=== PATIENT | female | born 1995 | race Two or more races ===

== ENCOUNTER 2023-08-11 17:10 | Observation (INO) | payer MEDICAID ==
[~2023-08-11] VITALS: Ht 168 cm; Wt 123.4 kg
[2023-08-11] MEDS ORDERED: PREN-537 PO (17:58)
== END 2023-08-11 18:45 | disposition home or self-care (01) ==
LOC: MLD 17:10
PROVIDERS: ADMIT Obstetrics & Gynecology; ATTEND Obstetrics & Gynecology
DX: O99.891 Other specified diseases and conditions complicating pregnancy (principal); M54.9 Dorsalgia, unspecified; M79.605 Pain in left leg; M79.604 Pain in right leg; Z3A.30 30 weeks gestation of pregnancy
CPT/HCPCS: 82948; G0378

== ENCOUNTER 2023-09-14 22:45 | Observation (INO) | payer MEDICAID ==
[~2023-09-14] VITALS: Ht 168 cm; Wt 108.9 kg
[~2023-09-14 22:45] MED LIST: PREN-537 PO
[2023-09-14] MEDS ORDERED: LIDOCAINE MPF 1% 10 MG/ML VIAL INJ SCH (23:55)
[2023-09-15] MEDS ORDERED: BETAMETH ACET/BETAMETH NA PH 30 MG/5 ML VIAL IM SCH
[2023-09-15] MEDS ORDERED: TERBUTALINE 1 MG/ML VIAL SUBQ ONE ×2 (00:01)
[2023-09-15] MEDS ORDERED: cefTRIAXone 1,000 MG in LIDOCAINE MPF 1% 2.1 ML IM SCH (00:05)
[2023-09-15] MEDS ORDERED: cefTRIAXone 1,000 MG VIAL ONE (00:19)
[2023-09-15] MEDS ORDERED: LIDOCAINE 1% 500 MG/50 ML VIAL ONE (00:20)
[2023-09-15 00:39] VITALS: BP 138/82; PULSE 97; RESP 18; TEMP 97.9
== END 2023-09-15 01:00 | disposition home or self-care (01) ==
LOC: MLD 22:45 → UNDOADMOB 22:48 → MLD 22:48
PROVIDERS: ADMIT Obstetrics & Gynecology; ATTEND Obstetrics & Gynecology
DX: O62.9 Abnormality of forces of labor, unspecified (principal); Z20.822 Contact with and (suspected) exposure to COVID-19; Z3A.35 35 weeks gestation of pregnancy
CPT/HCPCS: 81000; 87426; 96372; G0378; J0696; J0702; J2001; J3105

== ENCOUNTER 2023-10-05 18:39 | Inpatient (IN) | payer OTHER ==
[~2023-10-05] VITALS: Ht 168 cm; Wt 108.9 kg
[2023-10-05] MEDS ORDERED: CARBOPROST 250 MCG/ML AMP IM PRN (19:55)
[2023-10-05] MEDS ORDERED: METHYLERGONOVINE 0.2 MG/ML AMP IM PRN (19:55)
[2023-10-05] MEDS ORDERED: BLOOD GLUCOSE MONITORING 1 DEV DEV FS SCH (19:55)
[2023-10-05] MEDS ORDERED: OXYTOCIN 10 UNITS/ML VIAL IM SCH (19:55)
[2023-10-05 20:36] LABS: BASOPHILS % (AUTO) 0.3 % (0.0-2.0); EOSINOPHILS # (AUTO) 0.1 K/uL (0-0.4); HEMATOCRIT 35.8 % (36-48); HEMOGLOBIN 11.9 g/dL (12.0-16.0); LYMPHOCYTES # (AUTO) 1.7 K/uL (2.5-16.5); LYMPHOCYTES % (AUTO) 21.3 % (20.5-51.1); MEAN CORPUSCULAR HEMOGLOBIN 27 pg (27-31); MEAN CORPUSCULAR HGB CONC 33 g/dL (33-37); MEAN CORPUSCULAR VOLUME 81.3 fL (80-94); MONOCYTES # (AUTO) 0.6 K/uL (0.8-1.0); MONOCYTES % (AUTO) 7.7 % (1.7-9.3); NEUTROPHILS # (AUTO) 5.4 K/uL (1.8-7.7); NEUTROPHILS % (AUTO) 69.7 % (42.2-75.2); PLATELET COUNT (AUTO) 195 K/uL (140-450); RED CELL DISTRIBUTION WIDTH 14.1 % (11.6-13.7); WHITE BLOOD COUNT (AUTO) 7.8 K/uL (4.8-10.8)
[2023-10-05 20:37] LABS: APPEARANCE,URINE CLEAR (CLEAR); BILIRUBIN,URINE NEGATIVE (NEGATIVE); BLOOD, URINE NEGATIVE (NEGATIVE); COLOR,URINE YELLOW (YELLOW); LEUKOCYTE ESTERASE ,URINE NEGATIVE (NEGATIVE); NITRITE, URINE NEGATIVE (NEGATIVE); PH,URINE 6.5 (5.0-9.0); PROTEIN,URINE NEGATIVE (NEGATIVE); UGLUCOSE 3+ (NEGATIVE); UROBILINOGEN,URINE 0.2 EU/dL (0.2 - 1)
[2023-10-05 20:47] LABS: INR 0.85 (0.8-1.2); PARTIAL THROMBOPLASTIN TIME 24.6 secs (22-35.6)
[2023-10-05 20:49] LABS: TOTAL BILIRUBIN 0.2 mg/dL (0.0-1.0); TOTAL PROTEIN, SERUM 7.2 g/dL (6.4-8.2)
[2023-10-05 20:57] LABS: ANION GAP 15.3 (8-16); POTASSIUM 3.8 mmol/L (3.5-5.1)
[2023-10-05 20:59] LABS: CALCIUM 8.6 mg/dL (8.5-10.1); CARBON DIOXIDE 22.5 mmol/L (21-32); CREATININE 0.7 mg/dL (0.6-1.3)
[2023-10-05 21:44] VITALS: BP 107/55; PULSE 74; RESP 18; TEMP 98.5
[2023-10-05] MEDS ORDERED: INSU100I36 SQ (21:52)
[2023-10-05] MEDS: LACTATED RINGERS 1,000 ML IV SCH (22:00)
[2023-10-06] MEDS ORDERED: ONDANSETRON 4 MG/2 ML VIAL IVP PRN (00:15)
[2023-10-06] MEDS ORDERED: MORPHINE SULFATE 10 MG/ML VIAL IVP PRN (00:15)
[2023-10-06] MEDS: MISOPROSTOL 25 MCG TAB VG PRN (00:35)
[2023-10-06] MEDS: TERBUTALINE 1 MG/ML VIAL SUBQ SCH (07:17)
[2023-10-06] MEDS ORDERED: AMPICILLIN 2,000 MG VIAL ONE (07:53)
[2023-10-06] MEDS: AMPICILLIN 2,000 MG in NACL 0.9% 100 ML IV SCH (08:11)
[2023-10-06] MEDS ORDERED: ROPIVACAINE 0.2%/NS PREMIX 200 ML EPI ONE (10:53)
[2023-10-06] MEDS: AMPICILLIN 1,000 MG in NACL 0.9% 50 ML IV SCH (12:45)
[2023-10-06] MEDS ORDERED: OXYTOCIN 20 UNITS in LACTATED RINGERS 1,000 ML IV SCH (18:30)
[2023-10-06] MEDS ORDERED: AMPICILLIN 1,000 MG VIAL ONE (20:41)
[2023-10-06] MEDS: AMPICILLIN 1,000 MG VIAL ONE (20:53)
[2023-10-07] MEDS ORDERED: AMPICILLIN 1,000 MG VIAL ONE ×2 (00:44→05:30)
[2023-10-07] MEDS: AMPICILLIN 1,000 MG VIAL ONE (01:29)
[2023-10-07] MEDS ORDERED: ROPIVACAINE 0.2%/NS PREMIX 200 ML EPI ONE ×2 (01:32→17:12)
[2023-10-07] MEDS: LACTATED RINGERS 500 ML IV ONE (12:07)
[2023-10-07] MEDS ORDERED: CITRIC ACID/SODIUM CITRATE 30 ML UDC PO ONE (14:30)
[2023-10-07] MEDS ORDERED: ACETAMINOPHEN EXTRA STRENGTH 500 MG TAB ONE (17:43)
[2023-10-07] MEDS ORDERED: ceFAZolin 2,000 MG VIAL ONE (18:14)
[2023-10-07] MEDS ORDERED: LIDOCAINE/EPI MPF 2%1:200000 10 ML VIAL INJ ONE ×2 (18:49)
[2023-10-07] MEDS ORDERED: MORPHINE PRES FREE 10 MG/10 ML AMP IV ONE (18:49)
[2023-10-07] MEDS: CITRIC ACID/SODIUM CITRATE 30 ML UDC PO SCH (18:51)
[2023-10-07] MEDS: ACETAMINOPHEN EXTRA STRENGTH 500 MG TAB PO ONE (18:51)
[2023-10-07] MEDS ORDERED: diphenhydrAMINE 50 MG/ML VIAL ONE (19:12)
[2023-10-07] MEDS ORDERED: BLOOD GLUCOSE MONITORING 1 DEV DEV FS ONE (19:40)
[2023-10-07] MEDS ORDERED: LACTATED RINGERS 1,000 ML IV SCH (19:40)
[2023-10-07] MEDS ORDERED: ONDANSETRON 4 MG/2 ML VIAL IVP PRN (19:40)
[2023-10-07] MEDS ORDERED: MEASLES, MUMPS, AND RUBELLA 1 VIAL SQVAC ONE (20:45)
[2023-10-07] MEDS ORDERED: METHYLERGONOVINE 0.2 MG/ML AMP IM PRN (20:45)
[2023-10-07] MEDS ORDERED: OXYTOCIN 20 UNITS in LACTATED RINGERS 1,000 ML IV SCH (20:45)
[2023-10-07] MEDS: diphenhydrAMINE 50 MG/ML VIAL IVP PRN (20:55)
[2023-10-07] MEDS: OXYTOCIN 20 UNITS/LR PREMIX 1,000 ML IV ONE (20:59)
[2023-10-08] MEDS: KETOROLAC 30 MG/ML VIAL IVP PRN (00:16)
[2023-10-08] MEDS: OXYTOCIN 20 UNITS/LR PREMIX 1,000 ML IV ONE ×2 (02:59→10:46)
[2023-10-08 05:53] LABS: BASOPHILS % (AUTO) 0.2 % (0.0-2.0); EOSINOPHILS % (AUTO) 0.1 % (0.0-4.0); HEMATOCRIT 32.2 % (36-48); HEMOGLOBIN 10.6 g/dL (12.0-16.0); LYMPHOCYTES # (AUTO) 1.8 K/uL (2.5-16.5); LYMPHOCYTES % (AUTO) 12.8 % (20.5-51.1); MEAN CORPUSCULAR HEMOGLOBIN 27 pg (27-31); MEAN CORPUSCULAR HGB CONC 33 g/dL (33-37); MEAN CORPUSCULAR VOLUME 80.9 fL (80-94); MONOCYTES % (AUTO) 7.1 % (1.7-9.3); NEUTROPHILS # (AUTO) 11.3 K/uL (1.8-7.7); NEUTROPHILS % (AUTO) 79.8 % (42.2-75.2); PLATELET COUNT (AUTO) 181 K/uL (140-450); RED BLOOD CELL COUNT(AUTO) 3.98 MIL/uL (4.20-5.40); RED CELL DISTRIBUTION WIDTH 14.5 % (11.6-13.7); WHITE BLOOD COUNT (AUTO) 14.1 K/uL (4.8-10.8)
[2023-10-08] MEDS: bisacodyL 10 MG SUPP RC SCH (08:13)
[2023-10-08] MEDS: INSULIN LISPRO SLIDING SCALE 100 UNITS/ML VIAL SUBQ PRN (09:31)
[2023-10-08] MEDS ORDERED: OXYTOCIN 20 UNITS/LR PREMIX 1,000 ML IV ONE (10:36)
[2023-10-08] MEDS: oxyCODONE/APAP 5/325 MG 1 TAB TAB PO PRN (20:24)
[2023-10-09] MEDS: oxyCODONE/APAP 5/325 MG 1 TAB TAB PO PRN (17:09)
[2023-10-09] MEDS ORDERED: CAMERA MC ONE (19:29)
[2023-10-10] MEDS: SIMETHICONE 80 MG TAB.CHEW PO PRN (08:56)
== END 2023-10-10 16:20 | disposition home or self-care (01) | DRG 540 ==
LOC: OBSVTOIN 18:39 → MLD 18:39 → MFCC 10-07 21:32
PROVIDERS: ADMIT Obstetrics & Gynecology; ATTEND Obstetrics & Gynecology
PROC: 3E0R3BZ Introduction of Anesthetic Agent into Spinal Canal, Percutaneous Approach (ICD-10-PCS; 2023-10-07)
PROC: 00HU33Z Insertion of Infusion Device into Spinal Canal, Percutaneous Approach (ICD-10-PCS; 2023-10-07)
PROC: 10D00Z1 Extraction of Products of Conception, Low, Open Approach (ICD-10-PCS; principal; 2023-10-07 19:00)
DX: O24.424 Gestational diabetes mellitus in childbirth, insulin controlled (principal); O99.214 Obesity complicating childbirth; Z37.0 Single live birth; Z3A.38 38 weeks gestation of pregnancy; Z20.822 Contact with and (suspected) exposure to COVID-19; Z68.38 Body mass index [BMI] 38.0-38.9, adult
CPT/HCPCS: 36415; 51702; 59200; 76805; 76815; 80053; 81003; 82948; 85025; 85610; 85730; 86592; 86886; 86900; 86901; 87653-90; J0290; J1200; J1815; J1885; J2001; J2210; J2270; J2590; J2795; J3105; J7120; Q0092